=== PATIENT | male | born 1945 | race Caucasian/White ===

== ENCOUNTER 2019-03-07 05:29 | Inpatient (IN) | payer OTHER ==
[~2019-03-07] VITALS: Ht 177.8 cm; Wt 95.3 kg
[2019-03-14 14:25] VITALS: BP 128/77
== END 2019-03-14 16:45 | DRG 517 ==
LOC: ORIP 05:29 → 4NOR 10:32
PROVIDERS: ADMIT Neurological Surgery; ATTEND Neurological Surgery
PROC: 01NB0ZZ Release Lumbar Nerve, Open Approach (ICD-10-PCS; principal; 2019-03-07)
PROC: 01NR0ZZ Release Sacral Nerve, Open Approach (ICD-10-PCS; 2019-03-07)
PROC: 4A11X4G Monitoring of Peripheral Nervous Electrical Activity, Intraoperative, External Approach (ICD-10-PCS; 2019-03-07)
DX: M48.062 Spinal stenosis, lumbar region with neurogenic claudication (principal); Z60.2 Problems related to living alone; M47.26 Other spondylosis with radiculopathy, lumbar region; M51.16 Intervertebral disc disorders with radiculopathy, lumbar region; R26.9 Unspecified abnormalities of gait and mobility; M46.96 Unspecified inflammatory spondylopathy, lumbar region; I10 Essential (primary) hypertension; E78.5 Hyperlipidemia, unspecified; E11.9 Type 2 diabetes mellitus without complications; Z82.49 Family history of ischemic heart disease and other diseases of the circulatory system; Z79.899 Other long term (current) drug therapy
CPT/HCPCS: 72100; 82565; 82962; 93005; C9290; G0378; J0690; J1650; J2405; J2704; J2710; J3010; J3370; J3480; J3490; J2370; J7120